=== PATIENT | female | born 1960 | race Caucasian/White ===

== ENCOUNTER 2018-08-09 05:49 | Day surgery (SDC) | payer SELFPAY ==
[~2018-08-09] VITALS: Ht 157.5 cm; Wt 52.9 kg
[2018-08-09] MEDS ORDERED: ZYRTEC 10MG10 MG PO (07:32)
[2018-08-09] MEDS ORDERED: MOBIC15 MG PO (07:33)
[2018-08-09 09:35] VITALS: BP 117/73; PULSE 91; TEMP 98.6
--- NOTE | 2018-08-09 09:35 | NUR ---
PATIENT ARRIVES FROM OR VIA CART WITH RN AT BEDSIDE. POST OP VITAL SIGNS STARTED. ALERT AND ORIENTED X 3. DENIES PAIN. DAUGHTER IN ROOM. CALL LIGHT WITHIN REACH. GRAPE JUICE WITH ICE GIVEN PER REQUESTED. WILL CONTINUE TO MONITOR.
[2018-08-09 09:50] VITALS: BP 126/76; PULSE 90
[2018-08-09 10:05] VITALS: BP 115/73; PULSE 85; TEMP 98.2
--- NOTE | 2018-08-09 10:05 | NUR ---
PATIENT REMAINS STABLE. DENIES PAIN. ALERT AND ORIENTED X 3. DAUGHTER AT BEDSIDE. REQUESTED MUFFIN AND WATER. CALL LIGHT WITHIN REACH. WILL CONTINUE TO MONITOR.
[2018-08-09] MEDS ORDERED: NORCO 325 MG-7.1 TAB PO (10:44)
[2018-08-09 10:50] VITALS: BP 120/64; PULSE 78
--- NOTE | 2018-08-09 10:50 | NUR ---
PATIENT TOLERATED EATING CRACKERS WELL. RESTING WITH LIGHTS TURNED DOWN. DENIES PAIN. DAUGHTER AT BEDSIDE, CALL LIGHT WITHIN REACH. WILL CONTINUE TO MONITOR.
--- NOTE | 2018-08-09 11:00 | NUR ---
PATIENT AMBULATED TO THE BATHROOM WITH MINIMAL ASSISTANCE FROM [facility].
--- NOTE | 2018-08-09 11:23 | NUR ---
PATIENT HAS EATEN CRACKERS AND DRANK WATER, TOLERATED BOTH WELL.
--- NOTE | 2018-08-09 11:42 | NUR ---
PATIENT DISCHARGE INSTRUCTIONS GIVEN TO PATIENT AND DAUGHTER, VERBALIZED UNDERSTANDING. PATIENT ESCORTED TO PERSONAL CAR, AMBULATED AND GAIT IS STEADY. PATIENT HAS [facility] PRESCRIPTION TO TAKE TO THE PHARMACY.
== END 2018-08-09 12:00 | disposition home or self-care (01) ==
LOC: SDCO 05:49
DX: M75.22 Bicipital tendinitis, left shoulder (principal); M24.012 Loose body in left shoulder; S43.422A Sprain of left rotator cuff capsule, initial encounter; M19.90 Unspecified osteoarthritis, unspecified site; M81.0 Age-related osteoporosis without current pathological fracture; Z80.9 Family history of malignant neoplasm, unspecified; Z82.61 Family history of arthritis; F17.210 Nicotine dependence, cigarettes, uncomplicated; Z90.710 Acquired absence of both cervix and uterus
CPT/HCPCS: A4619; J0690; J1100; J1170; J1885; J2405; J2704; J3010; J7120

== ENCOUNTER → 2018-11-27 | Outpatient (CLI) | payer SELFPAY ==
[~2018-11-27] VITALS: Ht 157.5 cm; Wt 53.8 kg
[2018-11-27] VITALS (16 sets, daily range): BP systolic 82–146; BP diastolic 53–93; PULSE 69–89
[~2018-11-27] MED LIST: MOBIC15 MG PO; NORCO 325 MG-7.1 TAB PO; SINGULAIR 110 MG/TAB PO; ZYRTEC 10MG10 MG PO
--- NOTE | 2018-11-27 10:00 | NUR ---
PT TAKEN TO ULTRASOUND AND PT SCANNED. IMAGES SENT TO DR LOOMIS
--- NOTE | 2018-11-27 10:15 | NUR ---
PT IS DOING WELL.
--- NOTE | 2018-11-27 10:35 | NUR ---
PROCEDURE IS COMPLETED.
--- NOTE | 2018-11-27 11:14 | NUR ---
FENTANYL 25 MCG IV GIVEN AT 1110
--- NOTE | 2018-11-27 13:10 | NUR ---
PT TAKEN DOWN BY WHEELCHAIR TO [facility]. PT ABLE TO TRANSFER TO [facility]
== END ==
LOC: COL.RAD 08:59
DX: B18.2 Chronic viral hepatitis C (principal)
CPT/HCPCS: J3010